=== PATIENT | female | born 2000 | race Caucasian/White ===

== ENCOUNTER 2019-08-23 14:37 | Outpatient (CLI) | payer MEDICAID, SELFPAY ==
[2019-08-23 14:50] VITALS: TEMP 37.3
[2019-08-23 14:59] VITALS: BMI 32.3
[2019-08-23 15:06] VITALS: BP 129/74; PULSE 102
[2019-08-23 15:18] VITALS: BP 129/77; PULSE 106
[2019-08-23 15:49] VITALS: BP 130/79; PULSE 90
[2019-08-23 15:54] LABS: Protein:Creat Ratio 161 mg/g CRE (0-200)
[2019-08-23 16:03] LABS: Hematocrit 37.2 % (37-47); Hemoglobin 12.8 g/dL (12.0-15.0); Mean Corp Hgb Conc 34.4 g/dL (32-36); Mean Corpuscular Hgb 33.2 pg (27.0-32.0); Mean Corpuscular Volume 96.6 fL (81-99); Mean Platelet Vol. 9.6 fl (6.2-12.0); Platelet Count 336 K/mm3 (150-450); RBC Distribution Width CV 12.3 % (11.6-14.6); RBC Distribution Width SD 42.9 fl (35.1-43.9); Red Blood Count 3.85 M/mm3 (4.2-5.4); White Blood Count 8.5 K/mm3 (4.4-11.0)
[2019-08-23 16:07] VITALS: BP 126/85; PULSE 84
[2019-08-23 16:17] LABS: Partial Thromboplast Time 27.9 Seconds (24.1-36.2); Prothrombin Time (Protime)PT. 12.4 SECONDS (11.7-14.9)
[2019-08-23 16:29] LABS: Protein, Urine (Random) 17.3 mg/dL (<11.9); Protein:Creat Ratio 154 mg/g CRE (0-200)
[2019-08-23 16:32] LABS: AST(SGOT) 18 U/L (15-37); Alanine Aminotransfer ALT/SGPT 17 U/L (13-56); Creatinine, Serum 0.64 mg/dL (0.55-1.02); EST Glomerular Filtration Rate 124 mL/min (>60); Est Glom Filt Rate - Afr Amer 150 mL/min (>60); Estimated Creatinine Clearance 120.07 ml/min
[2019-08-23 16:39] VITALS: BP 128/76; PULSE 71; TEMP 36.6
--- NOTE | 2019-08-23 16:55 | NURSING ---
Per Dr. Merino pt does not need to be evaluated in hospital at this time since was seen and sent from office today.
--- NOTE | 2019-08-23 22:26 | OB.TRI.HP_ITS ---
- Problem List (1) 37 weeks gestation of Status: Acute (2) Headache Status: Acute History of Present Illness Date of Service: 08/23/19 Was patient seen by the physician?: No Reason For Visit: R/O [facility] Date of Service: 08/23/19 Final MELINDA: 09/11/19 Gestational age: 37 Weeks and 2 Days History of Present Illness: Patient at 37 weeks gestation sent over from office for elevated blood pressure and headache. Patient denies any vision changes or RUQ pain. Positive movement. No loss of fluid or vaginal bleeding. Allergies No Known Allergies Allergy (Verified 08/23/19 15:00) Laboratory Studies: Laboratory Tests 08/23/19 08/23/19 08/23/19 Range/Units 15:45 15:45 15:45 WBC 8.5 (4.4-11.0) K/mm3 RBC 3.85 L (4.2-5.4) M/mm3 Hgb 12.8 (12.0-15.0) g/dL Hct 37.2 (37-47) % MCV 96.6 (81-99) fL MCH 33.2 H (27.0-32.0) pg MCHC 34.4 (32-36) g/dL RDW Std Deviation 42.9 (35.1-43.9) fl RDW Coeff of Delbert 12.3 (11.6-14.6) % Plt Count 336 (150-450) K/mm3 MPV 9.6 (6.2-12.0) fl PT 12.4 (11.7-14.9) SECONDS INR 1.0 APTT 27.9 (24.1-36.2) Seconds Creatinine 0.64 (0.55-1.02) mg/dL Estim Creat Clear Calc 120.07 ml/min Est GFR (MDRD) Af Amer 150 (>60) mL/min Est GFR (MDRD) Non-Af 124 (>60) mL/min Uric Acid 5.0 (2.6-6.0) mg/dL AST 18 (15-37) U/L ALT 17 (13-56) U/L U Random Total Protein (<11.9) mg/dL Urine Creatinine (NO RANGE EST.) mg/dL Protein/Creatinin Ratio (0-200) mg/g CRE 08/23/19 08/23/19 Range/Units 15:15 15:15 WBC (4.4-11.0) K/mm3 RBC (4.2-5.4) M/mm3 Hgb (12.0-15.0) g/dL Hct (37-47) % MCV (81-99) fL MCH (27.0-32.0) pg MCHC (32-36) g/dL RDW Std Deviation (35.1-43.9) fl RDW Coeff of Delbert (11.6-14.6) % Plt Count (150-450) K/mm3 MPV (6.2-12.0) fl PT (11.7-14.9) SECONDS INR APTT (24.1-36.2) Seconds Creatinine (0.55-1.02) mg/dL Estim Creat Clear Calc ml/min Est GFR (MDRD) Af Amer (>60) mL/min Est GFR (MDRD) Non-Af (>60) mL/min Uric Acid (2.6-6.0) mg/dL AST (15-37) U/L ALT (13-56) U/L U Random Total Protein 17.3 H 18.0 H (<11.9) mg/dL Urine Creatinine 112.00 112.00 (NO RANGE EST.) mg/dL Protein/Creatinin Ratio 154 161 (0-200) mg/g CRE Review of Systems Eyes: Denies: Blurred vision, Double vision, Vision Change HEENT: Reports: Head Aches Cardiovascular: Denies: Chest Pain, Edema Respiratory: Denies: Cough, Shortness of Breath Gastrointestinal: Denies: Abdominal Pain Physical Exam Vitals: Vital Signs Temp Pulse BP 97.9 F 71 128/76 H 08/23/19 16:39 08/23/19 16:39 08/23/19 16:39 NST - FHR Rate Baby A Baseline: 130 Variability:: Moderate Accelerations:: 15 x 15 Decelerations:: None NST Reactive:: Yes FHR Category:: Category I Uterine Activity:: Irritability Impression/Plan at 37 weeks gestation sent from office for preeclampsia labs and blood pressure monitoring. Category 1 tracing BPs within normal range Labs within normal range P/C ratio= 161 Patient discharged home with preeclampsia precautions. Patient to follow up in office on Tuesday08/27/19.
== END 2019-08-23 17:05 | disposition home or self-care (01) ==
LOC: WPOUT 14:45 → WP 14:46
PROVIDERS: Obstetrics & Gynecology; Referring Provider Advanced Practice Midwife; Visit Provider Advanced Practice Midwife
DX: O26.893 Other specified pregnancy related conditions, third trimester (principal); R03.0 Elevated blood-pressure reading, without diagnosis of hypertension; R51 Headache; Z3A.37 37 weeks gestation of pregnancy
CPT/HCPCS: 36415; 59025; 59050; 82565; 82570; 84156; 84450; 84460; 84550; 85027; 85610; 85730; 99218; G0378

== ENCOUNTER 2019-08-30 10:15 | Inpatient (IN) | payer MEDICAID, SELFPAY ==
[2019-08-30] VITALS (62 sets, daily range): BP systolic 104–152; BP diastolic 57–96; PULSE 63–214; TEMP 36.3–37.8; O2SAT 82–100; BMI 33.0
[2019-08-30] MEDS: Lactated Ringers 1,000 ML 200 ML IV ×3 (11:05→23:08)
[2019-08-30 11:17] LABS: Absolute Lymphocyte Count 1.89 X10^3/uL (0.83-4.51); Absolute Neutrophil Count 6.2 X10^3/uL (2.0-7.7); Basophil# 0.02 X10^3/uL; Basophil% 0.2 % (0-1); Eosinophil# 0.09 X10^3/uL; Hematocrit 35.8 % (37-47); Hemoglobin 11.8 g/dL (12.0-15.0); Lymphocyte # 1.89 X10^3/ul (4.0); Lymphocyte % 21.2 % (19-41); Mean Platelet Vol. 9.3 fl (6.2-12.0); Monocyte# 0.64 X10^3/uL; Monocyte% 7.2 % (0-10); NRBC Flagged by Analyzer 0 % (0-5); Neutrophil # 6.24 X10^3/uL (2.7-7.7); Neutrophil % 69.8 % (47-70); Platelet Count 304 K/mm3 (150-450); RBC Distribution Width CV 12.4 % (11.6-14.6); RBC Distribution Width SD 43.4 fl (35.1-43.9); Red Blood Count 3.69 M/mm3 (4.2-5.4); White Blood Count 8.9 K/mm3 (4.4-11.0)
[2019-08-30 17:11] LABS: Partial Thromboplast Time 27.6 Seconds (24.1-36.2); Prothrombin Time (Protime)PT. 12.4 SECONDS (11.7-14.9)
[2019-08-30 17:17] LABS: Protein, Urine (Random) < 6.0 mg/dL (<11.9)
[2019-08-30 17:32] LABS: AST(SGOT) 15 U/L (15-37); Alanine Aminotransfer ALT/SGPT 16 U/L (13-56); Creatinine, Serum 0.68 mg/dL (0.55-1.02); EST Glomerular Filtration Rate 115 mL/min (>60); Est Glom Filt Rate - Afr Amer 140 mL/min (>60); Estimated Creatinine Clearance 113.01 ml/min; Uric Acid 5.1 mg/dL (2.6-6.0)
--- NOTE | 2019-08-30 17:38 | HP.PCM_ITS ---
- Problem List (1) 38 weeks gestation of Status: Acute (2) Primiparous Status: Acute (3) History of depression Status: Acute (4) History of marijuana use Status: Acute (5) Gestational hypertension Status: Acute History Date of Admission: 08/30/19 Final MELINDA: 09/11/19 Gestational age: 38 Weeks and 2 Days History of this : This is a 19 year-old, G 1, P 0, at 38 weeks gestational age admitted for labor management. I was in the office for a visit, and reported regular contractions overnight. In the office her cervical exam was 4/90/0 station with a bulging bag. No leaking of fluid or bleeding. Good movement. She was sent to labor and delivery for labor management. Allergies No Known Allergies Allergy (Verified 08/23/19 15:00) Home Medications: Home Medications Vits [Prenatabs FA ] 1 tab PO DAILY 08/23/19 Smoking Status: Never smoker Substance Use Type: Marijuana Number of Fetus(es): 1 NST - FHR Rate Baby A Variability:: Moderate Accelerations:: 15 x 15 Decelerations:: Variable FHR Category:: Category II Uterine Activity:: ctx's q 2-4 min History Past Pregnancies: Past Pregnancies Delivery Date Name GA/ Weeks Outcome Route Wt Sex Labor Length Anesthesia Delivery Location Provider FOB Labs: See [facility] record Expected Delivery Method: Spontaneous Vaginal Review of Systems Eyes: Denies: Blurred vision HEENT: Denies: Head Aches, Visual Changes Gynecological: Denies: Vaginal bleeding, Vaginal discharge Physical Exam Vitals: Vital Signs Temp Pulse BP Pulse Ox 98.1 F 87 130/76 H 98 08/30/19 16:16 08/30/19 16:52 08/30/19 16:52 08/30/19 16:17 General: Alert, No apparent distress HEENT: Atraumatic Abdomen: Soft, Non Tender, Gravid Extremities:: No edema Neurological: Neuro 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 - GBS negative - gHTN: Had 2 appointments where she had elevated BP's. BP normal today. No pre-e symptoms. Pre-e labs WNL. Discussed to let us know if she has any symptoms of pre-e - Routine intrapartum care - UDS for h/o marijuana use - EFW anticipated to be < 4500 g and pelvis adequate. Anticipate vaginal delivery
[2019-08-30] MEDS: Ondansetron 4 MG/2 ML Vial IV ×2 (18:04→23:20)
[2019-08-30] MEDS: Lactated Ringers 500 ML 999 ML IV ×2 (18:10→19:08)
[2019-08-30] MEDS: fentaNYL-bupivacaine (epidural) 100 ML BAG EPIDURAL ×2 (18:45→22:43)
[2019-08-31] VITALS (30 sets, daily range): BP systolic 109–137; BP diastolic 43–78; PULSE 67–205; RESP 16–18; TEMP 36.1–37.4; O2SAT 82–99
[2019-08-31 00:06] LABS: Amphetamine Urine VISTA NEGATIVE (<1000 ng/mL); Barbiturate Urine VISTA NEGATIVE (< 200 ng/mL); Benzodiazepine Urine VISTA NEGATIVE (< 200 ng/mL); Cocaine Urine VISTA NEGATIVE (< 300 ng/mL); Ecstacy Urine VISTA NEGATIVE (< 500 ng/mL); Methadone Urine VISTA NEGATIVE (< 300 ng/mL); PCP Urine VISTA NEGATIVE (< 25 ng/mL); THC Urine VISTA NEGATIVE (< 50 ng/mL); Vista UDS pH Range 6
[2019-08-31] MEDS: proCHLORPERazine 10 MG/2 ML Vial IV (00:31)
[2019-08-31] MEDS: Oxytocin 30 units/NS 500 ml 30 UNITS/500 ML IV.SOLN 334 UNITS IV (01:29)
--- NOTE | 2019-08-31 01:48 | OP.PCM_ITS ---
Problem List (1) 38 weeks gestation of Status: Acute (2) Primiparous Status: Acute (3) History of depression Status: Acute (4) History of marijuana use Status: Acute (5) Gestational hypertension Status: Acute Report of Operation Date of Procedure: 08/31/19 Pre-Operative Diagnosis: 38 week gestation, labor, gHTN Post-Operative Diagnosis: As above Surgery/Procedure Performed:: Description of Surgical Findings:: VMI delivered in OA position. No lacerations Type of Anesthesia:: Epidural Special Medications: None Specimen's removed: Placenta Drains: None Estimated Blood Loss (mL): 150 Description of Procedure: Patient complete and pushing. Head of infant delivered in OA position over intact perineum. Shoulders followed by body of were delivered without any force or delay. Viable female was delivered atraumatically and placed on maternal abdomen. The cord was clamped and cut after 60 sec delay by the father of the baby. Cord blood was obtained. Placenta delivered spontaneously and was noted to be intact and normal-appearing with a three- vessel cord. Uterus was explored x1. Fundus was firm and bleeding was hemostatic. No lacerations were noted. Bilateral superficial abrasions were noted near the urethral meatus that were hemostatic. Vaginal sweep was performed. Sponge counts were correct. Grafts/Implants Used: None - Complications None - Admit VTE Documentation VTE Present on Admission: No Vaginal Delivery Maternal Presentation: Active Labor Amniotic Membrane Rupture Type: Artificial Amniotic Fluid Description: Clear Surgery/ Procedure Performed: Spontaneous Vaginal Delivery Type of Anesthesia: Epidural Presentation: Vertex Placental Delivery Description: Spontaneous Cord Vessel Description: 3 Vessels Cord Entanglement: None A gender: Male (1 minute): 9 (5 minute): 9 Episiotomy Description: None Laceration: None Medications given after delivery: IV Pitocin Complications: None
[2019-08-31] MEDS: 0.9% Saline Lock 10 ML Syringe IV (04:34)
[2019-08-31] MEDS: Acetaminophen 500 MG Tablet 1000 MG PO (14:17)
--- NOTE | 2019-08-31 17:00 | CASEMGMT ---
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 Financial Status: Limited income Supplies: MOB reports has all needs met for baby including; diapers, wipes, clothes, car seat, crib, etc. Childcare/Caregiver(s): MOB and FOB report will be main caregivers. Transportation: MOB reports no concerns with transportation Programs/Agencies Involved: [employer]MOB reports will be calling Tuesday Children Services/Legal Issues: N/A Behavioral Health Issues: Mental Health History: MOB reports history of depression and anxiety and states was treated with medication. MOB reports completed counseling 2 years ago in [place]. MOB denies any current issues with depression and anxiety. Substance Use History: MOB admits to use of marijuana and states quit after finding out she was . MOB denies any plans to return to use. Family/Social Stressors: MOB and FOB deny any current stressors. Support Systems: MOB reports good support from FOB and her family. Depression/Shaken Baby/Safe Sleeping Reviewed and resources provided. ASSESSMENT: Met with MOB and FOB in room. Introduced role and reason for referral. MOB discussed history of mental health and denies any current issues. MOB admitted to use of marijuana during first trimester and reports quit smoking marijuana when she found out she was . MOB denies any plans to return to use. MOB reports is and baby Jose L welch is doing well with nursing. Discussed resources and education provided on [facility]. MOB open to referral. MOB and FOB deny any other needs at this time. MOB aware of possible need for referral due to use of THC at beginning of . Will watch for baby?s meconium results. PLAN: Home with resources provided. Referral to [facility] completed. No other services requested or indicated. -Maki Hale, TAX ADVISOR, SECURITY CONTROL CENTER OPERATOR
[2019-08-31] MEDS: Ibuprofen 600 MG Tablet PO (23:19)
[2019-09-01] VITALS (7 sets, daily range): BP systolic 112–127; BP diastolic 56–85; PULSE 73–83; RESP 16–18; TEMP 36.5–36.8; O2SAT 97–98
--- NOTE | 2019-09-01 11:20 | PCM.PN.OB ---
Patient Problems: Active and Suspected Problems 38 weeks gestation of (Acute) Primiparous (Acute) History of depression (Acute) History of marijuana use (Acute) Gestational hypertension (Acute) Subjective: Doing well per patient and nursing staff. Ambulating and taking PO without difficulty. Voiding and passing flatus. Pain controlled. Planning D/C home today. - Physical Exam Vitals/I&O's: Vital Signs Temp Pulse Resp BP Pulse Ox 97.7 F L 76 16 114/85 H 98 09/01/19 08:08 09/01/19 08:06 09/01/19 08:06 09/01/19 08:06 09/01/19 08:06 Oxygen Delivery Method Room Air Weight: 192 lb 7.417 oz Body Mass Index (BMI) 33.0 Intake and Output for Last 24 Hours 08/30/19 08/31/19 09/01/19 23:59 23:59 23:59 Intake Total 4089.50 / 4089.50 600.90 / 600.90 Output Total 1700 / 1900 2150 / 2150 Balance 2389.50 / 2189.50 -1549.10 / -1549.10 General: Alert, Oriented x3 HEENT: Atraumatic, PERRLA Neck: Trachea Midline Lungs: Clear to auscultation, Normal air movement, No rhonchi, No wheeze Cardiovascular: Regular rate, Regular Rhythm, No murmurs Abdomen: Bowel Sounds Present - Fundus firm 3 below U Extremities: No edema Neurological: Deep Tendon Reflexes 2+/4 and Symmetrical Psych/Mental Status: Normal Affect, Appropriate Current Medications Acetaminophen (Tylenol) 1,000 mg PO Q8H PRN PRN PRN Reason: Pain Score 1-10/10 Last Admin: 08/31/19 14:17 Dose: 1,000 mg Documented by: Bisacodyl (Dulcolax) 10 mg RECTAL UD PRN PRN Reason: If no BM Dibucaine (Dibucaine) 1 applic TOPICAL TID PRN PRN; Protocol PRN Reason: Discomfort Hydrocortisone (Hytone) 1 applic TOPICAL TID PRN PRN; Protocol PRN Reason: Discomfort Ibuprofen (Motrin) 600 mg PO Q6H PRN PRN PRN Reason: Pain Score 1-10/10 Last Admin: 08/31/19 23:19 Dose: 600 mg Documented by: Methylergonovine Maleate (Methergine) 0.2 mg IM X1 PRN PRN Reason: Excess bleeding/uterine atony Ondansetron HCl (Zofran) 4 mg IV Q4H PRN PRN PRN Reason: Nausea Senna/Docusate Sodium (Senokot-S, Eneida-Colace) 1 - 2 tablet PO DAILY PRN PRN PRN Reason: Constipation Simethicone (Mylicon) 80 mg PO PCHS PRN PRN Reason: Indigestion/Stomach pain Sodium Chloride () 5 - 15 ml IV UD PRN PRN Reason: SALINE FLUSH Last Admin: 08/31/19 04:34 Dose: 10 ml Documented by: Medical Necessity - Tobacco Use Smoking Status: Never smoker Assessment/Plan All Active Problems 37 weeks gestation of (Acute) Headache (Acute) 38 weeks gestation of (Acute) Primiparous (Acute) History of depression (Acute) History of marijuana use (Acute) Gestational hypertension (Acute) A:PPD #1 GHTN P: 1) Doing well per patient and nursing staff. 2) support 3) Planning D/C home today. 4) Follow up in 1 week for BP check, 6 week for PP visit 5) D/C home today
--- NOTE | 2019-09-01 11:25 | DCINST_ITS ---
Discharge Diet: No Restrictions Discharge Activity: Return to Normal Activity, May not drive while taking narcotic pain medications., May Shower, May Take a Tub Bath May resume sexual activity in: 4-6 weeks Additional Activity Instructions:: Nothing in the vagina for 4-6 weeks. You may return to work/school in 6 weeks. Call your doctor if your incision/area has: Continuous Slow Oozing, Sudden Increased Bleeding, Increased Pain/ Swelling, Increased Redness, Foul Smelling Discharge Call your doctor if you observe: Fever of 101 or Higher Additional Instructions: If you experience any of the following, contact your healthcare provider. * Bleeding that soaks a pad every hour for 2 hours * Fever 100.4 or higher * Unrelieved incision or abdominal pain * Swelling, redness, discharge or bleeding from your incision or episiotomy site * Your incision begins to separate * Problems urinating (including inability to urinate or burning while urinating). * Visual changes * Severe headache * Flu-like symptoms * Pain or redness in one of both of your breasts * Pain, warmth, tenderness or swelling in your legs, especially the calf area * Frequent nausea and vomiting * Symptoms of depression or anxiety If you experience any of the following, call 911 or go to the nearest Emergency Room. * Chest pain * Problems breathing * Seizure activity * Partial or complete paralysis of a body part, slurred speech, weakness or drooping of the face, or a sudden inability to walk or hold your balance Allergies/Adverse Reactions: Allergies No Known Allergies Allergy (Verified 08/23/19 15:00) Medications to take at Discharge Vits [Prenatabs FA ] 1 tab PO DAILY 08/23/19 Ibuprofen [Motrin] 600 mg PO Q6H PRN PRN #30 tab 09/01/19 The following prescriptions were given: Ibuprofen [Motrin] 600 mg PO Q6H PRN PRN #30 tab PRN Reason: Pain Score 1-10/10 Transmission Status: Sent to [facility]/pharmacy #[id number] Please Follow Up With: Camryn Gray DO When: Call to make an appointment with your doctor in 5 days for BP check and 6 weeks. Test Results: Test results from this visit will be discussed in further detail at your follow- up appointment, if applicable.
== END 2019-09-01 15:25 | disposition home or self-care (01) | DRG 560 ==
LOC: WP 10:25
PROVIDERS: Admitting Provider Obstetrics & Gynecology; Referring Provider Obstetrics & Gynecology; Visit Provider Obstetrics & Gynecology
DX: O13.4 Gestational [pregnancy-induced] hypertension without significant proteinuria, complicating childbirth (principal); Z37.0 Single live birth; Z3A.38 38 weeks gestation of pregnancy
CPT/HCPCS: 59025; 59050; 80307; 82565; 82570; 84156; 84450; 84460; 84550; 85025; 85610; 85730; 86850; 86900; 86901; 87635; 99218; G2023; J7120; A4216; G0378; J2405; U0003

== ENCOUNTER → 2019-09-03 20:19 | Outpatient (CLI) | payer MEDICAID, SELFPAY ==
[2019-08-30 10:35] VITALS: BMI 33.0
== END ==
PROVIDERS: Referring Provider Obstetrics & Gynecology; Visit Provider Obstetrics & Gynecology
DX: Z39.1 Encounter for care and examination of lactating mother (principal)
CPT/HCPCS: 96158; 96159

== ENCOUNTER → 2019-09-20 15:08 | Outpatient (CLI) | payer MEDICAID, SELFPAY ==
[2019-08-30 10:35] VITALS: BMI 33.0
== END ==
PROVIDERS: Referring Provider Obstetrics & Gynecology; Visit Provider Obstetrics & Gynecology
DX: Z39.1 Encounter for care and examination of lactating mother (principal)
CPT/HCPCS: 96158

== ENCOUNTER 2019-10-14 10:49 | Outpatient (CLI) | payer MEDICAID, SELFPAY ==
[2019-08-30 10:35] VITALS: BMI 33.0
== END 2019-10-14 11:13 | disposition home or self-care (01) ==
LOC: TELEHEALTH 10-15 11:20
PROVIDERS: Referring Provider Obstetrics & Gynecology; Visit Provider Obstetrics & Gynecology
DX: Z39.1 Encounter for care and examination of lactating mother (principal)
CPT/HCPCS: 96158

== ENCOUNTER → 2020-12-13 11:56 | Outpatient (CLI) | payer MEDICAID, SELFPAY | PROVIDERS: Referring Provider Obstetrics & Gynecology; Visit Provider Obstetrics & Gynecology | DX: Z39.1 Encounter for care and examination of lactating mother (principal) | CPT/HCPCS: 96158 ==

== ENCOUNTER 2023-07-17 08:01 | Inpatient (IN) | payer MEDICAID, SELFPAY ==
[2023-07-17] VITALS (61 sets, daily range): BP systolic 103–141; BP diastolic 53–88; PULSE 8–95; RESP 16–18; TEMP 36.3–37.3; O2SAT 79–100; BMI 32.8
[2023-07-17 04:52] LABS: Amphetamine Urine VISTA NEGATIVE (<1000 ng/mL); Barbiturate Urine VISTA NEGATIVE (< 200 ng/mL); Benzodiazepine Urine VISTA NEGATIVE (< 200 ng/mL); Cocaine Urine VISTA NEGATIVE (< 300 ng/mL); Ecstacy Urine VISTA NEGATIVE (< 500 ng/mL); Methadone Urine VISTA NEGATIVE (< 300 ng/mL); PCP Urine VISTA NEGATIVE (< 25 ng/mL); THC Urine VISTA NEGATIVE (< 50 ng/mL); Vista UDS pH Range 6
[2023-07-17] MEDS: Lactated Ringers 1,000 ML 200 ML IV ×2 (08:25→12:25)
[2023-07-17] MEDS: LACTATED RINGERS 500 ML 999 ML IV ×2 (08:25→08:57)
[2023-07-17 08:34] LABS: Absolute Lymphocyte Count 2.13 X10^3/uL (0.83-4.51); Absolute Neutrophil Count 5.4 X10^3/uL (2.0-7.7); Basophil# 0.02 X10^3/uL; Basophil% 0.2 % (0-1); Eosinophil# 0.09 X10^3/uL; Eosinophils% 1.1 % (0-5); Hemoglobin 12.3 g/dL (12.0-15.0); Lymphocyte # 2.13 X10^3/ul (0.83-4.51); Lymphocyte % 25.2 % (19-41); Mean Corp Hgb Conc 34.2 g/dL (32-36); Mean Corpuscular Hgb 32.3 pg (27.0-32.0); Mean Corpuscular Volume 94.5 fL (81-99); Mean Platelet Vol. 9.8 fl (6.2-12.0); Monocyte# 0.79 X10^3/uL; Monocyte% 9.3 % (0-10); NRBC Flagged by Analyzer 0 % (0-5); Neutrophil # 5.37 X10^3/uL (2.7-7.7); Neutrophil % 63.6 % (47-70); Platelet Count 247 K/mm3 (150-450); RBC Distribution Width CV 12.8 % (11.6-14.6); RBC Distribution Width SD 44.1 fl (35.1-43.9); Red Blood Count 3.81 M/mm3 (4.2-5.4); White Blood Count 8.5 K/mm3 (4.4-11.0)
[2023-07-17] MEDS: fentaNYL-bupivacaine (epidural) 100 ML BAG EPIDURAL (09:15)
[2023-07-17 09:16] LABS: Syphilis Antibodies Non-reactive
--- NOTE | 2023-07-17 10:52 | PCM.HP.OB ---
HPI - General General Date of Admission: 07/17/23 HPI Narrative ENEDINA CUEVAS, is a 23 F who presents at 39w1d in active labor. PFSH PFSH Medical History (Updated 07/17/23 @ 11:37 by Abi Reynoso CNM) UTI (urinary tract infection) Marijuana use Suicidal ideations Family history of hearing loss at age younger than 7 years Depression Anxiety Home Medications ?Medication ?Instructions ?Recorded ?Last Taken ?Type vits,calcium no.78-iron 1 tab PO DAILY 08/23/19 07/17/23 History fumarate-folic acid 29 mg-1 mg tablet ibuprofen 600 mg tablet 600 mg PO Q6H PRN PRN Pain Score 09/01/19 Unknown Rx -12/07 #30 tabs sertraline 25 mg tablet (Zoloft) 25 mg PO DAILY 07/17/23 07/17/23 History Allergy/AdvReac Type Severity Reaction Status Date / Time No Known Allergies Allergy Verified 07/17/23 03:05 Social History Smoking Status: Never smoker History Elective abortions Hx Para 1 Spontaneous abortions Hx # Term Pregnancies Ectopic pregnancies Hx # Pregnancies Multiple births # of living children ROS Constitutional Constitutional: Reports systems reviewed and no addt'l complaints, except as documented; Denies headache(s) Eyes Eyes: Denies acute decrease in peripheral vision, blurry vision or change in vision ENT HEENT: Reports systems reviewed and no addt'l complaints, except as documented Cardiovascular Cardiovascular: Denies chest pain or dizziness Respiratory/Chest Respiratory/Chest: Denies cough, dyspnea, dyspnea on exertion, shortness of breath at rest or shortness of breath with exertion Gastrointestinal Gastrointestinal: Denies abdominal pain, diarrhea, nausea or vomiting Musculoskeletal Musculoskeletal: Denies limited range of motion Integumentary Integumentary: Reports systems reviewed and no addt'l complaints, except as documented Neurologic Neurologic: Reports systems reviewed and no addt'l complaints, except as documented Psychiatric Psychiatric: Reports systems reviewed and no addt'l complaints, except as documented Endocrine Endocrinology: Reports systems reviewed and no addt'l complaints, except as documented Hematologic/Lymphatic Hematologic/Lymphatic: Reports systems reviewed and no addt'l complaints, except as documented Allergic/Immunologic Allergic/Immunologic: Reports systems reviewed and no addt'l complaints, except as documented Vital Signs Vital Signs Vital Signs: 07/17/23 03:00 07/17/23 03:00 07/17/23 03:00 Temperature Temperature Source Pulse Rate 83 Respiratory Rate Blood Pressure 136/73 H BP Systolic 136 BP Diastolic 73 Pulse Ox 97 07/17/23 03:00 07/17/23 03:00 07/17/23 03:00 Temperature 98.4 F Temperature Source Temporal Pulse Rate Respiratory Rate 18 Blood Pressure BP Systolic BP Diastolic Pulse Ox 07/17/23 06:22 07/17/23 06:22 07/17/23 06:22 Temperature Temperature Source Temporal Pulse Rate 72 Respiratory Rate Blood Pressure 125/61 H BP Systolic 125 BP Diastolic 61 Pulse Ox 07/17/23 06:22 07/17/23 06:22 07/17/23 06:22 Temperature 98.0 F Temperature Source Pulse Rate Respiratory Rate 18 Blood Pressure BP Systolic BP Diastolic Pulse Ox 99 07/17/23 07:16 07/17/23 07:16 07/17/23 07:16 Temperature Temperature Source Pulse Rate 78 Respiratory Rate Blood Pressure 122/85 H BP Systolic 122 BP Diastolic 85 Pulse Ox 99 07/17/23 07:16 07/17/23 07:16 07/17/23 07:16 Temperature 97.9 F Temperature Source Temporal Pulse Rate Respiratory Rate 16 Blood Pressure BP Systolic BP Diastolic Pulse Ox 07/17/23 09:00 07/17/23 09:00 07/17/23 09:01 Temperature Temperature Source Pulse Rate 78 79 Respiratory Rate Blood Pressure BP Systolic BP Diastolic Pulse Ox 89 07/17/23 09:01 07/17/23 09:05 07/17/23 09:05 Temperature Temperature Source Pulse Rate 76 Respiratory Rate Blood Pressure 119/79 BP Systolic 119 BP Diastolic 79 Pulse Ox 93 07/17/23 09:05 07/17/23 09:05 07/17/23 09:05 Temperature Temperature Source Pulse Rate 80 Respiratory Rate Blood Pressure 121/88 H BP Systolic 121 BP Diastolic 88 Pulse Ox 99 07/17/23 09:05 07/17/23 09:10 07/17/23 09:10 Temperature Temperature Source Pulse Rate 80 Respiratory Rate 18 Blood Pressure BP Systolic BP Diastolic Pulse Ox 98 07/17/23 09:11 07/17/23 09:11 07/17/23 09:11 Temperature Temperature Source Pulse Rate 73 Respiratory Rate 18 Blood Pressure 139/63 H BP Systolic 139 BP Diastolic 63 Pulse Ox 07/17/23 09:15 07/17/23 09:15 07/17/23 09:15 Temperature Temperature Source Pulse Rate 81 Respiratory Rate Blood Pressure 141/72 H BP Systolic 141 BP Diastolic 72 Pulse Ox 99 07/17/23 09:20 07/17/23 09:20 07/17/23 09:20 Temperature Temperature Source Pulse Rate 88 Respiratory Rate Blood Pressure 136/73 H BP Systolic 136 BP Diastolic 73 Pulse Ox 99 07/17/23 09:20 07/17/23 09:25 07/17/23 09:25 Temperature Temperature Source Pulse Rate 86 Respiratory Rate 16 Blood Pressure BP Systolic BP Diastolic Pulse Ox 99 07/17/23 09:25 07/17/23 09:26 07/17/23 09:26 Temperature Temperature Source Pulse Rate 75 Respiratory Rate 18 Blood Pressure 135/60 H BP Systolic 135 BP Diastolic 60 Pulse Ox 07/17/23 09:26 07/17/23 09:26 07/17/23 09:30 Temperature 98.2 F Temperature Source Temporal Pulse Rate 84 Respiratory Rate Blood Pressure BP Systolic BP Diastolic Pulse Ox 07/17/23 09:30 07/17/23 09:30 07/17/23 09:31 Temperature Temperature Source Pulse Rate Respiratory Rate 16 Blood Pressure 125/60 H BP Systolic 125 BP Diastolic 60 Pulse Ox 100 07/17/23 09:31 07/17/23 09:35 07/17/23 09:35 Temperature Temperature Source Pulse Rate 63 71 Respiratory Rate 16 Blood Pressure BP Systolic BP Diastolic Pulse Ox 07/17/23 09:35 07/17/23 09:36 07/17/23 09:36 Temperature Temperature Source Pulse Rate 75 Respiratory Rate Blood Pressure 123/64 H BP Systolic 123 BP Diastolic 64 Pulse Ox 100 07/17/23 09:40 07/17/23 09:40 07/17/23 09:40 Temperature Temperature Source Pulse Rate 71 Respiratory Rate 16 Blood Pressure BP Systolic BP Diastolic Pulse Ox 98 07/17/23 10:16 07/17/23 10:16 07/17/23 10:18 Temperature Temperature Source Pulse Rate 87 Respiratory Rate Blood Pressure 125/61 H BP Systolic 125 BP Diastolic 61 Pulse Ox 95 07/17/23 10:18 07/17/23 10:18 07/17/23 10:47 Temperature Temperature Source Pulse Rate 74 Respiratory Rate 16 Blood Pressure 106/58 L BP Systolic 106 BP Diastolic 58 Pulse Ox 07/17/23 10:47 07/17/23 10:47 07/17/23 10:47 Temperature Temperature Source Pulse Rate 68 66 Respiratory Rate Blood Pressure BP Systolic BP Diastolic Pulse Ox 99 07/17/23 10:47 07/17/23 10:47 07/17/23 10:47 Temperature 97.8 F Temperature Source Temporal Pulse Rate Respiratory Rate 16 Blood Pressure BP Systolic BP Diastolic Pulse Ox Weight Weight: 191 lb 9.6 oz Body Mass Index (BMI) 32.8 Physical Exam Const alert and oriented x3 General Appearance: cooperative Orientation / Consciousness: awake, oriented to person, oriented to place and oriented to time Exam Limitations: no limitations HEENT normocephalic Head and Scalp: normal to inspection, normocephalic and atraumatic Face and Sinus: normal facial exam Eyes General Eye: normal appearance of both eyes Neck full ROM Chest Chest: symmetrical chest wall rise Resp normal respiratory effort and normal air movement Auscultation: clear to auscultation bilaterally Cardio regular rate, regular rhythm, S1 normal heart sound, S2 normal heart sound, no murmurs, no rub, no gallops and no clicks GI normal to inspection, nondistended, normoactive bowel sounds and non-tender appearance of the vagina normal Bladder / Kidney Exam: no CVA tenderness Manual OB Exam: estimated gestational size appropriate, presentation cephalic, dilated 5, effaced 80, station -2 and other AROM clear fluid Back/Spine normal ROM Extremity normal to inspection and full ROM Skin no rashes or lesions noted Neuro oriented x3, CN's II-XII intact bilaterally and moves all extremities Sensorium / Orientation: awake, alert and oriented to person Motor Exam: clonus absent Deep Tendon Reflexes: Rt Patellar (L4): 2+ and Lt Patellar (L4): 2+ Labs Labs Labs: Blood Type O POSITIVE Antibody Screen NEGATIVE Hct 36.0 % (37-47) L Hgb 12.3 g/dL (12.0-15.0) Syphilis Total Ab Non-reactive Rhogam given: No GBS negative RPR negative Rubella Positive HIV non reactive HepC negative HBsAG negative O positive GC/CT negative 1hr GCT 94, normal Assessment & Plan (1) Active labor at term: (2) History of marijuana use: (3) History of anxiety: (4) History of depression: PLAN: Plan 1) Admit to labor and delivery 2) Continuous EFM 3) routine labs 4) Epidural for pain management 5) AROM 6) collaborative physician and notified of patient status, above assessment and plan.
[2023-07-17] MEDS: Ondansetron 4 MG/2 ML Vial IV (10:55)
[2023-07-17] MEDS: Oxytocin 15 Units/NS 250ml 15 UNITS/250 ML IV.SOLN 2 UNITS IV (12:25)
--- NOTE | 2023-07-17 14:01 | EX.PCM.OBRPT ---
Assessment & Plan (1) History of anxiety: (2) History of depression: (3) History of marijuana use: (4) Vaginal delivery: Maternal Data Information MELINDA Calculator Estimated Delivery Date Method Current WG Current Estimate 07/23/23 Manual 39w 1d Final MELINDA: 07/23/23 Vaginal Delivery Maternal Presentation Maternal Presentation: Active Labor Operative Information Date of Procedure: 07/17/23 Pre-Operative Diagnosis: Active labor at term Post-Operative Diagnosis: Surgery / Procedure Performed: Spontaneous Vaginal Delivery Type of Anesthesia: Epidural Estimated Blood Loss: 100ml Time of Delivery: 13:52 Findings Description of Procedure: Progressed to complete with urge to push. Epidural for pain management. of viable male over intact perineum. APGARS 8,9 respectively. Infant head delivered with body immediately forthcoming. Placed on maternal abdomen, strong cry. Mouth and nares suctioned for secretions. Pitocin started for active 3rd stage management. Cord doubly clamped and cut by FOB after pulsations ceased, delayed cord clamping. Placenta delivered intact via shannon, 3 vessel cord intact. Perineum inspected and revealed intact. Fundus firm and hemostasis achieved. EBL 100ml. Mom and baby stable, planning to breastfeed. Family bonding well. notified of delivery. Presentation: Vertex and CHRISTIANNE Amniotic Membrane Rupture Type: Artificial Amniotic Fluid Description: Clear Placental Delivery Description: Spontaneous Placenta Disposition: [facility] Cord Vessel Description: 3 Vessels Cord Entanglement: Around neck x 1, loose and - (around left leg loose) Nuchal Cord Compression: Without compression Infant A Gender: Male (1 minute): 8 (5 minute): 9 Delayed Cord Clamping: Yes Post Vaginal Delivery Medications Given After Delivery: IV Pitocin Episiotomy Description: None Laceration: None Complication Complications: None
[2023-07-17] MEDS: Oxytocin 15 Units/NS 250ml 15 UNITS/250 ML IV.SOLN 83 UNITS IV (14:40)
[2023-07-17] MEDS: Acetaminophen 500 MG Tablet 1000 MG PO (19:26)
--- NOTE | 2023-07-17 20:56 | NURSING ---
This RN received report from Marichuy BRAVO at 2020, this RN to resume care at this time.
[2023-07-17] MEDS: Sertraline 50 MG Tablet 25 MG PO (21:16)
[2023-07-18 00:22] VITALS: BP 117/74; PULSE 77; RESP 16; TEMP 36.6
[2023-07-18] MEDS: Acetaminophen 500 MG Tablet 1000 MG PO ×2 (01:44→08:37)
[2023-07-18 04:52] VITALS: BP 124/58; PULSE 65; RESP 16
[2023-07-18] MEDS: Ibuprofen 600 MG Tablet PO ×3 (04:57→16:20)
[2023-07-18 05:08] LABS: Absolute Lymphocyte Count 2.98 X10^3/uL (0.83-4.51); Absolute Neutrophil Count 6.2 X10^3/uL (2.0-7.7); Basophil# 0.03 X10^3/uL; Basophil% 0.3 % (0-1); Eosinophil# 0.16 X10^3/uL; Eosinophils% 1.6 % (0-5); Hematocrit 36.4 % (37-47); Lymphocyte # 2.98 X10^3/ul (0.83-4.51); Lymphocyte % 29.6 % (19-41); Mean Corpuscular Hgb 31.6 pg (27.0-32.0); Mean Corpuscular Volume 95.8 fL (81-99); Mean Platelet Vol. 9.8 fl (6.2-12.0); Monocyte# 0.71 X10^3/uL; NRBC Flagged by Analyzer 0 % (0-5); Neutrophil # 6.15 X10^3/uL (2.7-7.7); Platelet Count 213 K/mm3 (150-450); RBC Distribution Width CV 12.9 % (11.6-14.6); RBC Distribution Width SD 45.1 fl (35.1-43.9); White Blood Count 10.1 K/mm3 (4.4-11.0)
--- NOTE | 2023-07-18 06:06 | PCM.PN.OB ---
Subjective Subjective Doing well per patient and nursing staff. Ambulating and taking PO without difficulty. Voiding and passing flatus. Pain controlled. , services for assistance. Denies headache, visual changes, chest pain, shortness of breath, leg pain or increased bleeding. Lochia normal. Objective Data Objective Data Vital Signs: Vital Signs Temp Pulse Resp BP Pulse Ox O2 Del Method 97.8 F 65 16 124/58 H 97 Room Air 07/18/23 00:22 07/18/23 04:52 07/18/23 04:52 07/18/23 04:52 07/17/23 19:28 07/17/23 19:28 Oxygen Delivery Method Room Air Weight: 191 lb 9.6 oz Body Mass Index (BMI) 32.8 Intake & Output: Intake and Output for Last 24 Hours 07/16/23 07/17/23 07/18/23 23:59 23:59 23:59 Intake Total 3300.00 / 3300.00 Output Total 900 / 900 Balance 2400.00 / 2400.00 Lab / Micro Data 07/18/23 04:56 Labs: Laboratory Results - last 24 hr 07/17/23 08:20: WBC 8.5, RBC 3.81 L, Hgb 12.3, Hct 36.0 L, MCV 94.5, MCH 32.3 H, MCHC 34.2, RDW Std Deviation 44.1 H, RDW Coeff of Delbert 12.8, Plt Count 247, MPV 9.8, Immature Gran % (Auto) 0.600, Neut % (Auto) 63.6, Lymph % (Auto) 25.2, Beaver % (Auto) 9.3, Eos % (Auto) 1.1, Baso % (Auto) 0.2, Absolute Neuts (auto) 5.4, Absolute Lymphs (auto) 2.13, Nucleated RBC % 0, Syphilis Total Ab Non-reactive, Blood Type O POSITIVE, Antibody Screen NEGATIVE 07/18/23 04:56: WBC 10.1, RBC 3.80 L, Hgb 12.0, Hct 36.4 L, MCV 95.8, MCH 31.6, MCHC 33.0, RDW Std Deviation 45.1 H, RDW Coeff of Delbert 12.9, Plt Count 213, MPV 9.8, Immature Gran % (Auto) 0.500, Neut % (Auto) 61.0, Lymph % (Auto) 29.6, Beaver % (Auto) 7.0, Eos % (Auto) 1.6, Baso % (Auto) 0.3, Absolute Neuts (auto) 6.2, Absolute Lymphs (auto) 2.98, Nucleated RBC % 0 ROS Constitutional Constitutional: Reports systems reviewed and no addt'l complaints, except as documented; Denies headache(s) Eyes Eyes: Denies acute decrease in peripheral vision, blurry vision or change in vision ENT HEENT: Reports systems reviewed and no addt'l complaints, except as documented Cardiovascular Cardiovascular: Denies chest pain or dizziness Respiratory/Chest Respiratory/Chest: Denies cough, dyspnea, dyspnea on exertion, shortness of breath at rest or shortness of breath with exertion Gastrointestinal Gastrointestinal: Denies abdominal pain, diarrhea, nausea or vomiting Genitourinary Genitourinary: Denies abdominal discomfort Musculoskeletal Musculoskeletal: Denies limited range of motion Integumentary Integumentary: Reports systems reviewed and no addt'l complaints, except as documented Neurologic Neurologic: Reports systems reviewed and no addt'l complaints, except as documented Psychiatric Psychiatric: Reports systems reviewed and no addt'l complaints, except as documented Endocrine Endocrinology: Reports systems reviewed and no addt'l complaints, except as documented Hematologic/Lymphatic Hematologic/Lymphatic: Reports systems reviewed and no addt'l complaints, except as documented Allergic/Immunologic Allergic/Immunologic: Reports systems reviewed and no addt'l complaints, except as documented Physical Exam Const alert and oriented x3 General Appearance: cooperative Orientation / Consciousness: awake, oriented to person, oriented to place and oriented to time Exam Limitations: no limitations HEENT normocephalic Head and Scalp: normal to inspection, normocephalic and atraumatic Face and Sinus: normal facial exam Eyes General Eye: normal appearance of both eyes Neck full ROM Chest Chest: symmetrical chest wall rise Resp normal respiratory effort and normal air movement Auscultation: clear to auscultation bilaterally Cardio regular rate, regular rhythm, S1 normal heart sound, S2 normal heart sound, no murmurs, no rub, no gallops and no clicks GI normal to inspection, nondistended, normoactive bowel sounds and non-tender appearance of the vagina normal Bladder / Kidney Exam: no CVA tenderness Back/Spine normal ROM Extremity normal to inspection and full ROM Skin no rashes or lesions noted Neuro oriented x3 and moves all extremities Sensorium / Orientation: awake, alert and oriented to person Assessment & Plan (1) Vaginal delivery: (2) History of anxiety: (3) History of marijuana use: (4) History of depression: PLAN: Plan 1) Routine PP care 2) Vitals stable 3) 4) Pain management 5) D/C home today
--- NOTE | 2023-07-18 06:08 | PCM.DC.SUM ---
Providers Date of Admission: 07/17/23 Primary Care Physician: Brisa Primary Care Phys Reason For Visit: LABOR AND DELIVERY Diagnosis Discharge Diagnosis (1) Vaginal delivery: Status: Acute Code(s): O80 - Encounter for full-term uncomplicated delivery (2) History of anxiety: Status: Acute Code(s): Z86.59 - Personal history of other mental and behavioral disorders (3) History of marijuana use: Status: Acute Code(s): Z87.898 - Personal history of other specified conditions (4) History of depression: Status: Acute Code(s): Z86.59 - Personal history of other mental and behavioral disorders Plan 1) Routine PP care 2) Vitals stable 3) 4) Pain management 5) D/C home today Medications at Discharge Home Medications vits,calcium no.78-iron fumarate-folic acid 29 mg-1 mg tablet 1 tab PO DAILY 08/23/19 ibuprofen 600 mg tablet 600 mg PO Q6H PRN PRN Pain Score 1-10/10 #30 tabs 09/01/19 sertraline 25 mg tablet (Zoloft) 25 mg PO DAILY 07/17/23 acetaminophen 500 mg tablet 1,000 mg (2 x 500 mg) PO Q6H PRN PRN Pain 1-10 Or Fever #0 tabs 07/18/23 ibuprofen 600 mg tablet 600 mg PO Q6H PRN PRN Pain Score 1-10 #0 tabs 07/18/23 Hospital Course Summary of Care Provided Minutes Spent on Discharge: 15 Weight / BMI Weight Weight: 191 lb 9.6 oz Body Mass Index (BMI) 32.8 ABG / Lab / Microbiology Data 07/18/23 04:56 Laboratory: Laboratory Results - last 24 hr 07/17/23 08:20: WBC 8.5, RBC 3.81 L, Hgb 12.3, Hct 36.0 L, MCV 94.5, MCH 32.3 H, MCHC 34.2, RDW Std Deviation 44.1 H, RDW Coeff of Delbert 12.8, Plt Count 247, MPV 9.8, Immature Gran % (Auto) 0.600, Neut % (Auto) 63.6, Lymph % (Auto) 25.2, Doddridge % (Auto) 9.3, Eos % (Auto) 1.1, Baso % (Auto) 0.2, Absolute Neuts (auto) 5.4, Absolute Lymphs (auto) 2.13, Nucleated RBC % 0, Syphilis Total Ab Non-reactive, Blood Type O POSITIVE, Antibody Screen NEGATIVE 07/18/23 04:56: WBC 10.1, RBC 3.80 L, Hgb 12.0, Hct 36.4 L, MCV 95.8, MCH 31.6, MCHC 33.0, RDW Std Deviation 45.1 H, RDW Coeff of Delbert 12.9, Plt Count 213, MPV 9.8, Immature Gran % (Auto) 0.500, Neut % (Auto) 61.0, Lymph % (Auto) 29.6, Doddridge % (Auto) 7.0, Eos % (Auto) 1.6, Baso % (Auto) 0.3, Absolute Neuts (auto) 6.2, Absolute Lymphs (auto) 2.98, Nucleated RBC % 0 D/C Instructions Discharge Diet: No restrictions Discharge Activity: Return to Normal Activity, May Drive, May Shower and May Take a Tub Bath May resume sexual activity in: 6 weeks Weight Bearing Status: Full weight bearing Lifting Restricted to (Lbs): 20 Call your doctor if you observe: Fever of 101 or Higher, Inability to urinate, Inability to have a bowel movement, Using more than 1 pad per hour, Shortness of breath, Chest pain, Prolonged hiccupping, Increased palpitations (irregular heartbeat), Calf discomfort and Uncontrolled pain Meaningful Use Info Meaningful Use Meaningful Use Diagnoses (Choose all that apply): None applicable Ischemic Stroke Statin Dosing Therapy Reference: STATIN DOSE THERAPY REFERENCE: * Patients > 75 years receive moderate or high dose statin therapy. * Patients 75 years or YOUNGER should receive HIGH intensity statin dose unless contraindicated. You will be required to document reason for non-treatment if statin daily dose does not meet guidelines. HIGH DOSE STATIN THERAPY DAILY Atorvastatin > than or = to 40 mg Rosuvastatin > than or = to 20 mg Amlodipine + Atorvastatin > than or = to 2.5/40 mg Ezetimibe + Simvastatin 10/80 mg Simvastatin 80mg Discharge Plan Admission Admit Date/Time: 07/17/23 08:01 Primary Reason for Your Visit: Vaginal Delivery Attending Provider: Abi Reynoso Primary Care Provider: Care Physician,No Primary Discharge Orders/Prescriptions Prescriptions: New acetaminophen 500 mg Tablet 1,000 mg PO Q6H PRN PRN (Reason: Pain 1-10 Or Fever) Qty: 0 0RF ibuprofen 600 mg Tablet 600 mg PO Q6H PRN PRN (Reason: Pain Score 1-10) Qty: 0 0RF Continued vit,[id number] 1 TABLET tablet 1 tab PO DAILY sertraline [Zoloft] 25 mg tablet 25 mg PO DAILY No Action ibuprofen 600 MG tablet 600 mg PO Q6H PRN PRN (Reason: Pain Score 1-10/10) Qty: 30 0RF Referrals / Follow Up: Care Physician,No Primary [Primary Care Provider] - Disposition Disposition (needs filled in before D/C Order can be placed): Home, Self Care
[2023-07-18 08:29] VITALS: BP 160/72; PULSE 90
[2023-07-18 08:30] VITALS: BP 160/72; PULSE 90; RESP 16; TEMP 36.5
--- NOTE | 2023-07-18 11:11 | NURSING ---
pt bp 160/72 this AM at 8:30. Pt has been weepy and upset with baby's nursing performance. Will monitor.
[2023-07-18 12:00] VITALS: BP 118/70; PULSE 69; RESP 18; TEMP 36.4
[2023-07-18 12:02] VITALS: BP 118/70; PULSE 69
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
== END 2023-07-18 17:00 | disposition home or self-care (01) | DRG 560 ==
LOC: WPOUT 08:12 → WP 08:12
PROVIDERS: Admitting Provider Advanced Practice Midwife; Visit Provider Advanced Practice Midwife
DX: O80 Encounter for full-term uncomplicated delivery (principal); Z37.0 Single live birth; O99.344 Other mental disorders complicating childbirth; F32.A Depression, unspecified; F41.9 Anxiety disorder, unspecified; Z3A.39 39 weeks gestation of pregnancy; O69.81X0 Labor and delivery complicated by cord around neck, without compression, not applicable or unspecified
CPT/HCPCS: 59025; 59050; 80307; 85025; 86780; 86850; 86900; 86901; 99221; J7120; G0378; J2405